=== PATIENT | female | born 1930 | race Two or more races ===

== ENCOUNTER 2018-07-18 00:10 | Inpatient (IN) | payer MEDICARE, OTHER, MEDICAID | END 2018-07-23 14:40 | disposition home or self-care (01) | LOC: ER 00:10 → TELE 13:27 → TELE-WESTW 18:20 | DX: L50.9 Urticaria, unspecified (principal); E43 Unspecified severe protein-calorie malnutrition; N39.0 Urinary tract infection, site not specified; I24.9 Acute ischemic heart disease, unspecified; N18.4 Chronic kidney disease, stage 4 (severe); E87.1 Hypo-osmolality and hyponatremia; D64.9 Anemia, unspecified; I25.10 Atherosclerotic heart disease of native coronary artery without angina pectoris; N18.9 Chronic kidney disease, unspecified; I12.9 Hypertensive chronic kidney disease with stage 1 through stage 4 chronic kidney disease, or unspecified chronic kidney disease; Z86.711 Personal history of pulmonary embolism; Z86.718 Personal history of other venous thrombosis and embolism; E11.21 Type 2 diabetes mellitus with diabetic nephropathy; E11.22 Type 2 diabetes mellitus with diabetic chronic kidney disease ==